=== PATIENT | female | born 1980 | race Caucasian/White ===

== ENCOUNTER 2016-12-28 20:12 | Emergency (ER) | payer BC, OTHER ==
[2016-12-28 20:27] VITALS: BP 110/74
--- NOTE | 2016-12-28 21:00 | EDM.PDOC ---
ED HPI GENERAL MEDICAL PROBLEM - General Chief Complaint: General Stated Complaint: left hand thumb injury Time Seen by Provider: 12/28/16 20:39 Source of Information: Reports: Patient History Limitations: Reports: No Limitations - History of Present Illness INITIAL COMMENTS - FREE TEXT/NARRATIVE: Thumb sustained crush-like contusion secondary to hook while working at [employer]. Denies other injury to the hand. Left 1-Thumb Pain Score (Numeric/FACES): 6 - Related Data Allergies Allergy/AdvReac Type Severity Reaction Status Date / Time No Known Allergies Allergy Verified 12/28/16 20:12 Home Meds: Home Meds . 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 pelvic injury. shyphysis pubis injury. right poterior hip/SI injury Social & Family History - Tobacco Use Smoking Status *Q: Never Smoker - Caffeine Use Caffeine Use: Reports: Soda - Recreational Drug Use Recreational Drug Use: No ED ROS GENERAL - Review of Systems Review Of Systems: See Below Musculoskeletal: Reports: Other (Left thumb pain. Isolated to thumb only. No pain in rest of hand/fingers. No complaint of numbness. Feels "click" in joint when she flexes and extends thumb. ) Skin: Denies: Bruising, Erythema, Wound, Change in Color Neurological: Reports: No Symptoms Psychiatric: Reports: No Symptoms ED EXAM, GENERAL - Physical Exam Exam: See Below Exam Limited By: No Limitations General Appearance: Alert, WD/WN, No Apparent Distress Eye Exam: Bilateral Eye: EOMI, PERRL Head: Atraumatic, Normocephalic Respiratory/Chest: No Respiratory Distress Peripheral Pulses: 2+: Radial (L), Radial (R) Extremities: Other (mild swelling left thumb noted. No bruising, erythema, or dermal interruption. Able to flex and extend thumb however has some stiffness and pain limitation. No crepitus noted. Thumb/hand/fingers NVI. ) Neurological: Alert, Oriented, Normal Cognition, Normal Gait Psychiatric: Normal Affect, Normal Mood Skin Exam: Warm, Dry, Intact Course - Vital Signs Last Recorded V/S: Last Vital Signs Temp 37.0 C 12/28/16 20:20 Pulse 68 12/28/16 20:20 Resp 18 12/28/16 20:20 BP 110/74 12/28/16 20:20 Pulse Ox 100 12/28/16 20:20 - Radiology Interpretation Free Text/Narrative:: questionable fracture noted proximal phalanx at joint. - Re-Assessments/Exams Free Text/Narrative Re-Assessment/Exam: 12/28/16 21:05 Thumb splinted for protection. Will contact patient with results of Radiology review once they are available. Work limitation to avoid use of left thumb put into effect. Patient to follow up Saturday for re-evaluation with either local provider or Ortho walk-in clinic in [place]. Free Text/Narrative Re-Assessment/Exam: 12/29/16 22:03 Radiology reading noted no obvious fracture. Departure - Departure Time of Disposition: 20:54 Disposition: Home, Self-Care 01 Condition: Good Clinical Impression: Crush injury to thumb Qualifiers: Encounter type: initial encounter Laterality: left Qualified Code(s): S67.02XA - Crushing injury of left thumb, initial encounter - Discharge Information Referrals: Harmony Rajan PA-C [Primary Care Provider] - Forms: ED Department Discharge Additional Instructions: As discussed in ER, there is questionable area of fracture. We will call you once Radiology has reviewed the xray. If they suspect fracture, you can follow up Saturday in [place] at either [facility] or [facility] walk-in clinic or with your local medical provider. They can re-assess your injury at that time and determine additional treatment plan as well as work limitations. Ice/elevate/Tylenol/Ibuprofen for pain as needed.
== END 2016-12-28 21:10 | disposition home or self-care (01) ==
LOC: LL.ED 20:12
DX: S67.02XA Crushing injury of left thumb, initial encounter (principal); E78.00 Pure hypercholesterolemia, unspecified; Z90.89 Acquired absence of other organs; Z98.51 Tubal ligation status; W23.0XXA Caught, crushed, jammed, or pinched between moving objects, initial encounter; Y99.0 Civilian activity done for income or pay; Y92.69 Other specified industrial and construction area as the place of occurrence of the external cause
CPT/HCPCS: 73140-FA; 99283

== ENCOUNTER 2018-10-07 16:33 | Emergency (ER) | payer BC ==
--- NOTE | 2018-10-07 16:50 | EDM.PDOC ---
ED HPI GENERAL MEDICAL PROBLEM - General Chief Complaint: General Stated Complaint: DENTAL PAIN Time Seen by Provider: 10/07/18 16:45 Source of Information: Reports: Patient, Family (Mother), Old Records ([facility] chart/EMR) History Limitations: Reports: No Limitations - History of Present Illness INITIAL COMMENTS - FREE TEXT/NARRATIVE: The patient was brought to the emergency room via private automobile by her mother for evaluation of 10/10 right lower dental pain after tooth extraction by her dentist Dr. Moreira at noon today. The patient did take 600 mg of ibuprofen at 14:00 hours this afternoon with no improvement in symptoms. Patient did take Ultram 100 mg at 8 AM this morning prior to the above tooth extraction but no further Ultram since that time. Note that the patient did see her regular provider, Harmony Mondragon PA-C, at [facility] in [place] , who did prescribe her Augmentin for a dental abscess, with a total treatment regimen of 10 days by the patient's history. The patient apparently called her dentist prior to coming to the emergency room with no further narcotic medications, etc. prescribed by her dentist. No recent history of abdominal pain , heartburn, nausea, diarrhea, melena, gross hematochezia, or any food intolerance, including fatty foods, etc.. The patient also denies any recent fever, cough, wheezing, dyspnea, etc.. She denies any significant bleeding, etc. since dental extraction as above. Onset Date: 10/06/18 Duration: Constant, Getting Worse Location: Reports: Face (Dental pain as above). Denies: Head, Neck, Chest, Abdomen, Back, Radiates to Quality: Reports: Same as Previous Episode, Sharp, Stabbing, Throbbing Severity: Severe Improves with: Reports: None Worsens with: Reports: None Context: Reports: Other (As above). 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 Cardiovascular History: Reports: Arrhythmia, High Cholesterol, Syncope, Other ( See Below) Other Cardiovascular History: Hypotension. Near syncopal/syncopal episode on 05/28 with negative EEG as below and additional history of borderline bradycardia. Gastrointestinal History: Reports: Bowel Obstruction, Cholelithiasis, Chronic Constipation, Other (See Below) Other Gastrointestinal History: Multiple abdominal adhesions with previous constipation and borderline obstruction. Nonsymptomatic cholelithiasis diagnosed by ultrasound in 1999 for as below. 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 Musculoskeletal History: Reports: Arthritis, Back Pain, Chronic, Fracture, Osteoarthritis Other Musculoskeletal History: Left thumb drill bit injury in the early 1999. Right hip dislocation and pelvic fracture secondary to trauma requiring surgery as below. Psychiatric History: Reports: Anxiety, Depression Endocrine/Metabolic History: Reports: Obesity/BMI 30+ - Past Surgical History HEENT Surgical History: Reports: Adenoidectomy, Oral Surgery, Tonsillectomy Other HEENT Surgeries/Procedures: Multiple tooth extractions GI Surgical History: Reports: Colonoscopy. Denies: Appendectomy, Cholecystectomy Female Surgical History: Reports: Endometrial Ablation, Tubal Ligation Neurological Surgical History: Reports: Lumbar Spine, Other (See Below) Other Neurological Surgeries/Procedures: ORIF of Right hip, pelvic/pubic symphysis, and SI fusion secondary to trauma Other Musculoskeletal Surgeries/Procedures:: right hip pins/s. pelvic injury. shyphysis pubis injury. right poterior hip/SI injury - Past Imaging History Past Imaging History: Reports: CAT Scan (CT of the maxillofacial bones on and CT of the abdomen and pelvis on 02/04/12, 01/09/11, and 10/16/06.), EEG (08/03.), Ultrasound (Pelvic ultrasound on 01/23/11, 01/09/11, 08/29/05, and . Abdominal/pelvic ultrasound on 09/21/03.) Social & Family History - Tobacco Use Smoking Status *Q: Former Smoker Tobacco Use Within Last Twelve Months: No, Cigarettes Years of Tobacco use: 4 Packs/Tins Daily: 0.5 Packs/Tins Daily Comment: Smoked between ages 13 and 17. Used Tobacco, but Quit: Yes Smoking Cessation Information Provided To Patient: No Second Hand Smoke Exposure: No Second Hand Smoke Education Provided: No - Caffeine Use Caffeine Use: Reports: Soda ED ROS GENERAL - Review of Systems Review Of Systems: ROS reveals no pertinent complaints other than HPI. ED EXAM, GENERAL - Physical Exam Exam: See Below Exam Limited By: No Limitations General Appearance: Alert, WD/WN, No Apparent Distress, Anxious (Moderate) Eye Exam: Bilateral Eye: EOMI, Normal Inspection (No nystagmus. Patient is wearing glasses.), PERRL Ears: Normal External Exam, Normal Canal, Hearing Grossly Normal, Normal TMs, Other (Multiple studs in auricles bilaterally) Nose: Normal Inspection, Normal Mucosa, No Blood Throat/Mouth: Normal Lips, Normal Gums (Mild gingival swelling at site of right lower posterior premolar region with blood clot in place with no acute bleeding , purulent drainage, etc.), Normal Oropharynx, Normal Voice, No Airway Compromise. No: Normal Teeth (Right lower posterior premolar extraction with clot still in place and no evidence of acute purulent drainage despite gingiva swelling as below. Multiple previous teeth extractions.), Dysphagia, Perioral Cyanosis Head: Atraumatic, Normocephalic, Facial Swelling (Mild right lower perioral swelling secondary to tooth extraction with no local warming, etc.), Facial Tenderness (As above at extraction site). No: Sinus Tenderness Neck: Normal Inspection, Supple, Non-Tender, Full Range of Motion. No: Lymphadenopathy (L), Lymphadenopathy (R), Thyromegaly Respiratory/Chest: No Respiratory Distress, Lungs Clear, Normal Breath Sounds, No Accessory Muscle Use, Chest Non-Tender. No: Pleural Rub, Retractions Cardiovascular: Normal Peripheral Pulses, Regular Rate, Rhythm, No Edema, No Gallop, No JVD, No Murmur, No Rub. No: Gallop/S3, Gallop/S4, Friction Rub Peripheral Pulses: 2+: Radial (L), Radial (R) GI/Abdominal: Normal Bowel Sounds, Soft, Non-Tender, No Organomegaly, No Distention, No Abnormal Bruit, No Mass, Other (obese). No: Guarding (Female) Exam: Deferred Rectal (Female) Exam: Deferred Back Exam: Normal Inspection, Full Range of Motion. No: CVA Tenderness (L), CVA Tenderness (R), Muscle Spasm Extremities: Normal Inspection, Normal Range of Motion, Non-Tender, No Pedal Edema, Normal Capillary Refill. No: Anika's Sign Neurological: Alert, Oriented, CN II-XII Intact, Normal Cognition, Normal Gait, No Motor/Sensory Deficits Psychiatric: Anxious (Moderate), Depressed Mood (Mild) Skin Exam: Warm, Dry, Intact, Normal Color, No Rash, Stud(s) (As above). No: Diaphoretic, Ecchymosis, Increased Warmth, Lymphangitis, Petechiae, Rash, Wound/ Incision Lymphatic: No Adenopathy Course - Vital Signs Last Recorded V/S: Last Vital Signs Temp 36.9 C 10/07/18 16:35 Pulse 65 10/07/18 16:35 Resp 16 10/07/18 16:35 BP 133/82 10/07/18 17:10 Pulse Ox 100 10/07/18 16:35 Vital Signs - 24 hr 10/07/18 10/07/18 16:35 17:10 Temperature [ 36.9 C Oral] Pulse, 65 Peripheral [ Pulse Oximetry] Respiratory 16 Rate Blood Pressure 162/88 H 133/82 [Right Upper Arm] O2 Sat by Pulse 100 Oximetry - Orders/Labs/Meds Orders: Active Orders 24 hr Category Date Time Status Obtain Past Medical Record [OM.PC] Routine Oth 10/07/18 16:55 Active Labs: None Meds: Medications Discontinued Medications Generic Name Dose Route Start Last Admin Trade Name Cheikhq PRN Reason Stop Dose Admin Meperidine HCl 50 mg 10/07/18 16:54 10/07/18 17:03 Demerol IM 10/07/18 16:55 50 mg ONETIME ONE Administration Promethazine HCl 50 mg 10/07/18 16:54 10/07/18 17:03 Phenergan IM 10/07/18 16:55 50 mg ONETIME ONE Administration - Radiology Interpretation Free Text/Narrative:: None Departure - Departure Time of Disposition: 17:20 Disposition: Home, Self-Care 01 Condition: Good Clinical Impression: Dental abscess, Mixed anxiety depressive disorder, Elevated blood pressure reading Osteoarthritis Qualifiers: Osteoarthritis location: multiple joints Osteoarthritis type: primary Qualified Code(s): M15.0 - Primary generalized (osteo)arthritis - Discharge Information *PRESCRIPTION DRUG MONITORING PROGRAM REVIEWED*: Not Applicable *COPY OF PRESCRIPTION DRUG MONITORING REPORT IN PATIENT NATHAN: Not Applicable Instructions: Dental Abscess, [id number], Promethazine injection, Meperidine injection, Dental Extraction, Care After, [id number] Referrals: Harmony Rajan PA-C [Primary Care Provider] - Forms: ED Department Discharge Additional Instructions: 1. Followup with your regular provider in 3-7 days as needed, if symptoms persist. Bring these discharge instructions with you to that visit. 2. Tylenol 650 mg by mouth every 4 hours and/or OTC ibuprofen 2-3 tabs by mouth every 6 hours with food as directed./needed. You may stagger these medications for 48-72 hours only, which essentially means that you are receiving a pain medication about every 2 hours. You may use your previous Ultram with these medications. 3. Sedation precautions with no driving, etc. for 12 hours because of emergency room medications. 4. OTC Orajel to outer gum area as needed/as discussed 5. Immediately after this visit verify that your cellular telephone's voicemail has been activated and is empty. Also verify that your home telephone 's answering machine is operating properly and has space to receive messages. Note that it is sometimes necessary for us to be able to contact you at a later date to discuss your medical care. 6. Please remember that we are ALWAYS here for you and want to answer any questions you may have. Feel free to call the hospital any time and we call you back [facility]. - Problem List & Annotations (1) Dental abscess SNOMED Code(s): 606313899 Code(s): K04.7 - PERIAPICAL ABSCESS WITHOUT SINUS Status: Acute Priority : High Onset Date: ~10/06/18 Annotation/Comment:: Dental extraction today as above. Patient does not feel that she can tolerate Tylenol with nonspecific problems with this medication in the past. Ibuprofen, Tylenol, and Ultram instructions were given. Patient became somewhat confrontational and tearful when I informed her that I could not prescribe any further narcotics through the emergency room. She may use additional topical Orajel in the outer gumlines as directed. The patient already has a work excuse. Complete previously prescribed Augmentin therapy. She plans to follow-up with her dentist tomorrow. (2) Elevated blood pressure reading SNOMED Code(s): 22394492 Code(s): R03.0 - ELEVATED BLOOD-PRESSURE READING, W/O DIAGNOSIS OF HTN Status: Acute Priority: Medium Onset Date: 10/07/18 Annotation/Comment:: Improved prior to discharge. Elevated blood pressure likely secondary to current dental pain. Note previous history of hypotension. Observe for now. (3) Mixed anxiety depressive disorder SNOMED Code(s): 054339717 Code(s): F41.8 - OTHER SPECIFIED ANXIETY DISORDERS Status: Chronic Priority: Medium Annotation/Comment:: Stable by patient history. Continue to observe closely by her regular provider. (4) Osteoarthritis SNOMED Code(s): 756692087 Code(s): M19.90 - UNSPECIFIED OSTEOARTHRITIS, UNSPECIFIED SITE Status: Chronic Priority: Medium Annotation/Comment:: Stable by history Qualifiers: Osteoarthritis location: multiple joints Osteoarthritis type: primary Qualified Code(s): M15.0 - Primary generalized (osteo)arthritis - Problem List Review Problem List Initiated/Reviewed/Updated: Yes - My Orders Last 24 Hours: My Active Orders 10/07/18 16:55 Obtain Past Medical Record [OM.PC] Routine - Assessment/Plan Last 24 Hours: My Active Orders 10/07/18 16:55 Obtain Past Medical Record [OM.PC] Routine Assessment:: As above Plan: As above. Extensive precautions were given to the patient and her mother, who are in agreement with the treatment plan. See Patient Instructions for further treatment and plan.
[2018-10-07] MEDS: Meperidine PF 50 MG/ML Amp IM ONE (17:03)
[2018-10-07] MEDS: Promethazine 25 MG/ML SDV IM ONE (17:03)
[2018-10-07 17:26] VITALS: BP 133/82
== END 2018-10-07 17:20 | disposition home or self-care (01) ==
LOC: LL.ED 16:33
DX: K04.7 Periapical abscess without sinus (principal); F41.8 Other specified anxiety disorders; E78.00 Pure hypercholesterolemia, unspecified; E66.9 Obesity, unspecified; Z87.891 Personal history of nicotine dependence; M15.0 Primary generalized (osteo)arthritis; Z79.899 Other long term (current) drug therapy; Z68.31 Body mass index [BMI] 31.0-31.9, adult
CPT/HCPCS: 96372; 99282; J2175; J2550

== ENCOUNTER 2020-10-20 19:57 | Emergency (ER) | payer BC ==
[2020-10-20 20:48] VITALS: BP 122/74; PULSE 58
[2020-10-20] MEDS ORDERED: Acetaminophen/Codeine 300-30 MG Tab PO ONE ×2 (20:51→20:58)
[2020-10-20] MEDS ORDERED: Fluconazole 200 MG Tab PO SCH (21:15)
--- NOTE | 2020-10-20 21:18 | EDM.PDOC ---
ED HPI GENERAL MEDICAL PROBLEM - General Chief Complaint: Upper Extremity Injury/Pain Stated Complaint: Finger injury Time Seen by Provider: 10/20/20 20:35 Source of Information: Reports: Patient History Limitations: Reports: No Limitations - History of Present Illness INITIAL COMMENTS - FREE TEXT/NARRATIVE: Pt. presents to ER with complaints of pain to R ring finger. States that she was working at [employer] and was attempting to break loose a piece of metal. Her coworker was doing the same thing and when he did, pt. reports that the piece of metal crushed her finger. She states that the metal piece is about 25#. Her tetanus is up to date. Pt. complains of numbness in the distal portion of the extremity. Denies any injury elsewhere. Onset: Today Onset Date: 10/20/20 Location: Reports: Upper Extremity, Right Quality: Reports: Ache Severity: Moderate Right Finger-Ring Pain Score (Numeric/FACES): 10 - Related Data Allergies Allergy/AdvReac Type Severity Reaction Status Date / Time No Known Allergies Allergy Verified 10/20/20 20:27 Home Meds: Home Meds . [No Known Home Meds] 10/20/20 [History] Past Medical History HEENT History: Reports: Impaired Vision, Other (See Below) Other HEENT History: Patient wears glasses. Cardiovascular History: Reports: Arrhythmia, High Cholesterol, Syncope, Other (See Below) Other Cardiovascular History: Hypotension. Near syncopal/syncopal episode on 05/28/10 with negative EEG as below and additional history of borderline bradycardia. Gastrointestinal History: Reports: Bowel Obstruction, Cholelithiasis, Chronic Constipation, Other (See Below) Other Gastrointestinal History: Multiple abdominal adhesions with previous constipation and borderline obstruction. Nonsymptomatic cholelithiasis diagnosed by ultrasound in 1999 for as below. 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 Musculoskeletal History: Reports: Arthritis, Back Pain, Chronic, Fracture, Osteoarthritis Other Musculoskeletal History: Left thumb drill bit injury in the early 1999. Right hip dislocation and pelvic fracture secondary to trauma requiring surgery as below. Psychiatric History: Reports: Anxiety, Depression Endocrine/Metabolic History: Reports: Obesity/BMI 30+ - Past Surgical History HEENT Surgical History: Reports: Adenoidectomy, Oral Surgery, Tonsillectomy Other HEENT Surgeries/Procedures: Multiple tooth extractions GI Surgical History: Reports: Colonoscopy. Denies: Appendectomy, Cholecystectomy Female Surgical History: Reports: Endometrial Ablation, Tubal Ligation Neurological Surgical History: Reports: Lumbar Spine, Other (See Below) Other Neurological Surgeries/Procedures: ORIF of Right hip, pelvic/pubic symphysis, and SI fusion secondary to trauma Other Musculoskeletal Surgeries/Procedures:: right hip pins/s. pelvic injury. shyphysis pubis injury. right poterior hip/SI injury - Past Imaging History Past Imaging History: Reports: CAT Scan (CT of the maxillofacial bones on 06/28/[address] of the abdomen and pelvis on 02/04/12, 01/09/11, and 10/16/06.), EEG (06/08/10.), Ultrasound (Pelvic ultrasound on 01/23/11, 01/09/11, 08/29/05, and 12/22/02. Abdominal/pelvic ultrasound on 09/21/03.) Social & Family History - Caffeine Use Caffeine Use: Reports: Soda Review of Systems - Review of Systems Review Of Systems: Comprehensive ROS is negative, except as noted in HPI. ED EXAM, GENERAL - Physical Exam Exam: See Below General Appearance: Alert, WD/WN, No Apparent Distress Extremities: Other (There is blood coming from under the fingernail. No obvious mark deformity noted. CMS intact. She is resistive to removing nail danish due to pain. Complains of pain on flexion of DIP joint of 4th digit R hand.) Neurological: Alert, Oriented, CN II-XII Intact, Normal Cognition, Normal Gait Course - Vital Signs Last Recorded V/S: Last Vital Signs Temp 37.1 C 10/20/20 20:28 Pulse 58 L 10/20/20 20:28 Resp 14 10/20/20 20:28 BP 122/74 10/20/20 20:28 Pulse Ox 100 10/20/20 20:28 - Orders/Labs/Meds Orders: Active Orders 24 hr Category Date Time Status Fingers Fourth Digit Rt F8 [CR] Stat Exams 10/20/20 19:59 Taken Fluconazole [Diflucan] Med 10/20/20 21:15 Ordered 200 mg PO DAILY Medication Orders Fluconazole (Fluconazole 200 Mg Tab) 200 mg PO DAILY NABIL Meds: Medications Generic Name Dose Route Start Last Admin Trade Name Freq PRN Reason Stop Dose Admin Fluconazole 200 mg 10/20/20 21:15 Fluconazole 200 Mg Tab PO DAILY NABIL Discontinued Medications Generic Name Dose Route Start Last Admin Trade Name Tanya PRN Reason Stop Dose Admin Acetaminophen/Codeine Phosphate 1 tab 10/20/20 20:51 10/20/20 21:09 Acetaminophen/Codeine 300-30 Mg Tab PO 10/20/20 20:52 1 tab ONETIME ONE Administration Acetaminophen/Codeine Phosphate 1 tab 10/20/20 20:58 10/20/20 21:10 Acetaminophen/Codeine 300-30 Mg Tab PO 10/20/20 20:59 1 tab ONETIME ONE Administration - Radiology Interpretation Free Text/Narrative:: Possible lucency through distal portion of distal phalanx. No significant deformity noted. Departure - Departure Time of Disposition: 21:22 Disposition: Home, Self-Care 01 Clinical Impression: Distal phalanx or phalanges, closed fracture - Discharge Information Instructions: Finger Fracture, Adult, [id number] Referrals: Harmony Rajan PA-C [Primary Care Provider] - Forms: ED Department Discharge Additional Instructions: Repeat x-rays in clinic in 7 days Keep splint on until then. No lifting with your R hand until you have repeat radiographs. keflex 500mg 1 tab 4 times daily for 7 days Tylenol #3 1 tab every 4-6 hours as needed for pain Sepsis Event Note (ED) - Evaluation Sepsis Screening Result: No Definite Risk - Focused Exam Vital Signs: Vital Signs Temp Pulse Resp BP Pulse Ox 10/20/20 20:28 37.1 C 58 L 14 122/74 100 - Problem List Review Problem List Initiated/Reviewed/Updated: Yes - My Orders Last 24 Hours: My Active Orders 10/20/20 19:59 Fingers Fourth Digit Rt F8 [CR] Stat 10/20/20 21:15 Fluconazole [Diflucan] 200 mg PO DAILY - Assessment/Plan Last 24 Hours: My Active Orders 10/20/20 19:59 Fingers Fourth Digit Rt F8 [CR] Stat 10/20/20 21:15 Fluconazole [Diflucan] 200 mg PO DAILY Plan: Repeat x-rays in clinic in 7 days Keep splint on until then. No lifting with your R hand until you have repeat radiographs. keflex 500mg 1 tab 4 times daily for 7 days Tylenol #3 1 tab every 4-6 hours as needed for pain
[2020-10-21] MEDS ORDERED: Acetaminophen/Codeine 300-30 MG Tab ONE (00:51)
== END 2020-10-20 21:20 | disposition home or self-care (01) ==
LOC: LL.ED 19:57
DX: S62.614A Displaced fracture of proximal phalanx of right ring finger, initial encounter for closed fracture (principal); E66.9 Obesity, unspecified; Z68.29 Body mass index [BMI] 29.0-29.9, adult; W23.0XXA Caught, crushed, jammed, or pinched between moving objects, initial encounter; Y99.0 Civilian activity done for income or pay
CPT/HCPCS: 73140; 99283; A9270